=== PATIENT | female | born 1950 | race Asian ===

== ENCOUNTER 2016-08-26 16:00 | Emergency (ER) | payer OTHER ==
[~2016-08-26] VITALS: Ht 160 cm; Wt 83.0 kg
[2016-08-26 16:25] VITALS: BP 149/67; TEMP 98.5
== END 2016-08-26 17:33 | disposition home or self-care (01) ==
LOC: ED 16:00
DX: R20.2 Paresthesia of skin (principal); S60.811A Abrasion of right wrist, initial encounter
CPT/HCPCS: 99282

== ENCOUNTER 2017-07-02 10:32 | Emergency (ER) | payer OTHER ==
[~2017-07-02] VITALS: Ht 160 cm; Wt 91.7 kg
[2017-07-02 13:47] VITALS: BP 139/72; TEMP 98.7
== END 2017-07-02 13:47 | disposition home or self-care (01) ==
LOC: ED 10:32
DX: F22 Delusional disorders (principal)
CPT/HCPCS: 99281

== ENCOUNTER 2018-01-31 12:03 | Emergency (ER) | payer OTHER ==
[2018-03-12] MEDS ORDERED: IRON90 MG PO (08:02)
[2018-03-12] MEDS ORDERED: RANI150T78 PO (08:03)
[2018-03-12] MEDS ORDERED: KLOR-CON M2020 MEQ PO (08:03)
[2018-03-12] MEDS ORDERED: RISP0.25 PO (08:03)
== END 2018-01-31 12:41 | disposition home or self-care (01) ==
LOC: ED 12:03
DX: R22.43 Localized swelling, mass and lump, lower limb, bilateral (principal)
CPT/HCPCS: 99281

== ENCOUNTER 2018-02-01 10:55 | Emergency (ER) | payer OTHER ==
[~2018-02-01] VITALS: Ht 160 cm; Wt 80.7 kg
[2018-02-01 11:05] VITALS: TEMP 97.3
[2018-02-01 11:46] LABS: PLATELET COUNT 187 K/uL (152-353)
[2018-02-01 11:53] LABS: POTASSIUM 3.4 mmol/L (3.6-5.2)
[2018-02-01 12:25] VITALS: BP 118/70
[2018-03-12] MEDS ORDERED: IRON90 MG PO (08:02)
[2018-03-12] MEDS ORDERED: RISP0.25 PO (08:03)
[2018-03-12] MEDS ORDERED: RANI150T78 PO (08:03)
[2018-03-12] MEDS ORDERED: KLOR-CON M2020 MEQ PO (08:03)
== END 2018-02-01 12:25 | disposition home or self-care (01) ==
LOC: ED 10:55
DX: L20.89 Other atopic dermatitis (principal)
CPT/HCPCS: 36415; 80053; 81000; 85027; 99283

== ENCOUNTER 2018-02-22 11:37 | Emergency (ER) | payer OTHER ==
[~2018-02-22] VITALS: Ht 160 cm; Wt 80.7 kg
[2018-02-22 11:46] VITALS: BP 1139/78; TEMP 98.1
[2018-03-12] MEDS ORDERED: IRON90 MG PO (08:02)
[2018-03-12] MEDS ORDERED: RISP0.25 PO (08:03)
[2018-03-12] MEDS ORDERED: RANI150T78 PO (08:03)
[2018-03-12] MEDS ORDERED: KLOR-CON M2020 MEQ PO (08:03)
== END 2018-02-22 13:30 | disposition home or self-care (01) ==
LOC: ED 11:37
DX: F20.89 Other schizophrenia (principal)
CPT/HCPCS: 99281

== ENCOUNTER 2018-03-28 09:48 | Emergency (ER) | payer OTHER ==
[~2018-03-28] VITALS: Ht 160 cm; Wt 93.2 kg
[~2018-03-28 09:48] MED LIST: IRON90 MG PO; KLOR-CON M2020 MEQ PO; RANI150T78 PO; RISP0.25 PO
[2018-03-28 10:04] VITALS: BP 104/74; TEMP 98.4
[2018-03-28 12:27] LABS: PLATELET COUNT 179 K/uL (152-353)
[2018-03-28 12:36] LABS: POTASSIUM 3.5 mmol/L (3.6-5.2)
== END 2018-03-28 16:35 | disposition home or self-care (01) ==
LOC: ED 09:48
PROVIDERS: Emergency Medicine
DX: F20.0 Paranoid schizophrenia (principal); R00.1 Bradycardia, unspecified
CPT/HCPCS: 36415; 80053; 80320; 80329; 85027; 93005; 99285